=== PATIENT | female | born 1995 | race African-American/Black ===

== ENCOUNTER 2019-06-25 06:40 | Emergency (ER) | payer OTHER ==
[~2019-06-25] VITALS: Ht 154.9 cm; Wt 68.1 kg
--- OUTSIDE RECORDS SUMMARY | 2019-06-25 06:42 | XMS REPORT ---
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 Problem Name Problem Code Onset Date Status Entry Date Provider Comment Standard Description Annotate BMI 27.0-27.9 Active Herbert Stapleton APRN Body Mass Index 27.0-27.9, adult Encounter for immunization V05.9 Active Herbert Stapleton APRN Need for prophylactic vaccination and inoculation against unspecified single disease Iron deficiency anemia 280.9 Active Herbert Stapleton APRN Iron deficiency anemia, unspecified Overweight Active Herbert Stapleton APRN Overweight Preventive health care V70.0 Active Herbert Stapleton APRN Routine general medical examination at a health care facility Screening for anemia V78.1 Active Herbert Stapleton APRN Screening for other and unspecified deficiency anemia Vaccination for HPV V04.89 Active Oscar Serrato DO Need for prophylactic vaccination and inoculation against other viral diseases Urinary tract infection ICD-599.0 Inactive Herbert Stapleton APRN Depo Provera contraceptive, initial prescription ICD-V25.02 Inactive Herbert Stapleton APRN Encounter for general counseling on initiation of other contraceptive measures ICD-V25.02 Inactive Herbert Stapleton APRN Urinary tract infection 599.0 Inactive Kj Ribeiro Urinary tract infection, site not specified Urinary tract infection ICD-599.0 Inactive Herbert Stapleton APRN Urinary tract infection ICD-599.0 Inactive Kj Ribeiro Well woman ICD-V72.31 Inactive Herbert Stapleton APRN NEED PROPH VACCINATION W/UNSPEC COMB VACCINE ICD-V06.9 Inactive Herbert Stapleton APRN Urinary tract infection 599.0 Resolved Herbert Stapleton APRN Urinary tract infection, site not specified Depo Provera contraceptive, initial prescription V25.02 Resolved Herbert Stapleton APRN Encounter for general counseling on initiation of other contraceptive measures Encounter for general counseling on initiation of other contraceptive measures V25.02 Resolved Herbert Stapleton APRN Encounter for general counseling on initiation of other contraceptive measures Urinary tract infection 599.0 Resolved Herbert Stapleton APRN Urinary tract infection, site not specified Well woman V72.31 Resolved Herbert Stapleton APRN Routine gynecological examination NEED PROPH VACCINATION W/UNSPEC COMB VACCINE V06.9 Resolved Herbert Stapleton APRN Need for prophylactic vaccination with unspecified combined vaccine Medication List Medication Instructions Start Date Stop Date Generic Name NDC Status Provider Patient Instruction TANDEM 162-115.2 MG ORAL CAPSULE 1 tablet by mouth daily. Take with Vitamin C to help with absorption. Avoid dairy products 1 hour before or 2 hours after. FERROUS FUM-IRON POLYSACCH [id number] Active Herbert Stapleton APRN Active BACTRIM DS 800-160 MG ORAL TABLET 1 po bid BACTRIM DS 800-160 MG ORAL TABLET 19820928 SULFAMETHOXAZOLE-TRIMETHOPRIM Inactive SULFAMETHOXAZOLE-TRIMETHOPRIM 800-160 MG ORAL TABLET SULFAMETHOXAZOLE-TRIMETHOPRIM 800-160 MG ORAL TABLET 19820928 SULFAMETHOXAZOLE-TRIMETHOPRIM Inactive BACTRIM DS 800-160 MG ORAL TABLET 1 po bid SULFAMETHOXAZOLE-TRIMETHOPRIM [id number] No Longer Active Rodari Stapleton PUMP INSTALLATION AND SERVICER Active SULFAMETHOXAZOLE-TRIMETHOPRIM 800-160 MG ORAL TABLET SULFAMETHOXAZOLE-TRIMETHOPRIM [id number] No Longer Active Kj Ribeiro Active Advance Directives Directive Description Start Date DISCUSSED - NO DECISION MADE Immunizations Vaccine Administration Date Value Standard Description Human Papillomavirus vaccine (Gardasil) #3, (HPV #3) given human papilloma virus vaccine, quadrivalent Human Papillomavirus vaccine (Gardasil) #3, (HPV #3) Drug Name Gardasil 9 human papilloma virus vaccine, quadrivalent Human Papillomavirus vaccine (Gardasil) #2, (HPV #2) given human papilloma virus vaccine, quadrivalent Human Papillomavirus vaccine (Gardasil) #2, (HPV #2) Drug Name Gardasil 9 human papilloma virus vaccine, quadrivalent Human Papilloma Virus Vaccine (Gardasil) (HPV 1) Administration Date given human papilloma virus vaccine, quadrivalent meningococcal polysaccharide conjugate vaccine (MCV4) given meningococcal vaccine, unspecified formulation Vital Signs Date Name Value Unit Range Description blood pressure, diastolic 69 mm[Hg] BP castro blood pressure, systolic 110 mm[Hg] BP sys height E&M 64 [in_us] Bdy height pulse rate E&M 94 /min Heart rate temperature E&M 97.9 [degF] Body temperature weight E&M 158 [lb_av] Weight Measured blood pressure, diastolic 87 mm[Hg] BP castro blood pressure, systolic 129 mm[Hg] BP sys height E&M 64 [in_us] Bdy height pulse rate E&M 79 /min Heart rate temperature E&M 99.1 [degF] Body temperature weight E&M 160.56 [lb_av] Weight Measured Diagnostic Results Date Name Value Unit Range Description Lab Report: CBC With Differential/Platelet, Prolactin, Panel [id number], HCV ... - Serology hepatitis C antibody, serum <0.1 0.0-0.9 Lab Report: UA/M w/rflx Culture, Routine, Microscopic Examination, UA/M ... - Urinalysis epithelial cells, urine 0-10 /[LPF] 0 - 10 Office Visit: Acute Visit Fatigue/ Anemia HPV IN - Urinalysis pH, urine, semiquantitative 5.0 Lab Report: CBC With Differential/Platelet, Comp. Metabolic Panel (14), ... - Hematology lymphocyte count, blood, automated 2.7 X10E3/UL 10*3/mm3 0.7-3.1 Office Visit: Acute Visit Fatigue/ Anemia HPV IN - Urinalysis bilirubin, urine negative Lab Report: CBC With Differential/Platelet, Comp. Metabolic Panel (14), ... - Chemistry urea nitrogen, blood 12 mg/dL 6-20 ferritin, serum 45 ng/mL 15-150 creatinine, serum 0.67 mg/dL 0.57-1.00 chloride, serum 101 mmol/L 96-106 Lab Report: CBC With Differential/Platelet, Comp. Metabolic Panel (14), ... - Hematology mean corpuscular volume, RBC 87 fL 79-97 erythrocyte (RBC) count 4.27 X10E6/UL 10*6/mm3 3.77-5.28 Lab Report: CBC With Differential/Platelet, Comp. Metabolic Panel (14), ... - Chemistry Estimated Glomerular Filtration Rate (calc) 126 mL/min/1.73m2 >59 Lab Report: CBC With Differential/Platelet, Comp. Metabolic Panel (14), ... - Hematology platelet count 426 X10E3/UL 10*3/mm3 150-379 Office Visit: Acute Visit Fatigue/ Anemia HPV IN - Urinalysis appearance, urine clear Lab Report: CBC With Differential/Platelet, Comp. Metabolic Panel (14), ... - Hematology red blood cell distribution width 14.1 % 12.3-15.4 Lab Report: CBC With Differential/Platelet, Comp. Metabolic Panel (14), ... - Chemistry protein, total, serum 7.4 g/dL 6.0-8.5 Lab Report: CBC With Differential/Platelet, Prolactin, Panel [id number], HCV ... - Chemistry prolactin, serum 9.7 ng/mL 4.8-23.3 Lab Report: UA/M w/rflx Culture, Routine, Microscopic Examination, UA/M ... - Urinalysis mucus on urinalysis Present Not Estab. Lab Report: UA/M w/rflx Culture, Routine, Microscopic Examination, UA/M ... - Chemistry specific gravity, body fluid 1.019 1.005-1.030 Office Visit: Acute Visit Fatigue/ Anemia HPV IN - Urinalysis glucose, urine, semiquantitative negative Lab Report: CBC With Differential/Platelet, Comp. Metabolic Panel (14), ... - Chemistry albumin/globulin ratio, serum 1.6 1.2-2.2 Lab Report: CBC With Differential/Platelet, Comp. Metabolic Panel (14), ... - Hematology eosinophils as percent of blood leukocytes 4 % Not Estab. Lab Report: CBC With Differential/Platelet, Comp. Metabolic Panel (14), ... - Chemistry Absolute Neutrophils 2.0 X10E3/UL 10*3/uL 1.4-7.0 Lab Report: CBC With Differential/Platelet, Comp. Metabolic Panel (14), ... - Hematology basophil count, absolute 0.0 x10E3/uL 0.0-0.2 Lab Report: CBC With Differential/Platelet, Prolactin, Panel [id number], HCV ... - Chemistry hepatitis B surface antigen Negative Negative Lab Report: CBC With Differential/Platelet, Comp. Metabolic Panel (14), ... - Chemistry iron saturation percent, serum 20 % 15-55 alanine aminotransferase (SGPT), serum 17 U/L 0-32 Office Visit: Acute Visit Fatigue/ Anemia HPV IN - Urinalysis nitrite, urine, semiquantitative negative Lab Report: CBC With Differential/Platelet, Comp. Metabolic Panel (14), ... - Hematology monocytes as percent of blood leukocytes 10 % Not Estab. Lab Report: Pap IG, rfx HPV ASCU - Lab Human Papillomavirus test result HPVNotTested Lab Report: UA/M w/rflx Culture, Routine, Microscopic Examination, UA/M ... - Basic Occult Blood, urine 1+ Negative Lab Report: CBC With Differential/Platelet, Comp. Metabolic Panel (14), ... - Hematology mean corpuscular hemoglobin concentration, RBC 32.5 G/DL % 31.5-35.7 Office Visit: Acute Visit Fatigue/ Anemia HPV IN - Urinalysis leukocyte esterase, urine, by dipstick negative Lab Report: CBC With Differential/Platelet, Comp. Metabolic Panel (14), ... - Hematology hemoglobin, blood 12.1 g/dL 11.1-15.9 Lab Report: UA/M w/rflx Culture, Routine, Microscopic Examination, UA/M ... - Urinalysis urinalysis, microscopic examination See below: Lab Report: CBC With Differential/Platelet, Comp. Metabolic Panel (14), ... - Hematology leukocyte count, blood 5.5 X10E3/UL 10*3/mm3 3.4-10.8 Lab Report: CBC With Differential/Platelet, Comp. Metabolic Panel (14), ... - Chemistry B-12, serum 435 pg/mL 232-1245 Office Visit: Acute Visit Fatigue/ Anemia HPV IN - Urinalysis protein, urine, semiquantitative (dipstick) negative Lab Report: CBC With Differential/Platelet, Comp. Metabolic Panel (14), ... - Hematology hematocrit, blood 37.2 % 34.0-46.6 Lab Report: CBC With Differential/Platelet, Comp. Metabolic Panel (14), ... - Chemistry globulin, serum 2.9 1.5-4.5 Lab Report: UA/M w/rflx Culture, Routine, Microscopic Examination, UA/M ... - Urinalysis bacteria, urine microscopy None seen None seen/Few Lab Report: CBC With Differential/Platelet, Prolactin, Panel [id number], HCV ... - Chemistry thyroid stimulating hormone, serum 0.845 u[iU]/mL 0.450-4.500 Lab Report: CBC With Differential/Platelet, Comp. Metabolic Panel (14), ... - Chemistry albumin, serum 4.5 g/dL 3.5-5.5 Office Visit: Acute Visit Fatigue/ Anemia HPV IN - Urinalysis urobilinogen, urine, semiquantitative (dipstick) negative Lab Report: CBC With Differential/Platelet, Comp. Metabolic Panel (14), ... - Chemistry calcium, serum 9.6 mg/dL 8.7-10.2 Lab Report: CBC With Differential/Platelet, Comp. Metabolic Panel (14), ... - Hematology basophils as percent of blood leukocytes 0 % Not Estab. monocyte count, blood, automated 0.5 X10E3/UL 10*3/uL 0.1-0.9 Lab Report: CBC With Differential/Platelet, Comp. Metabolic Panel (14), ... - Chemistry immature granulocytes, percentage of total cells, blood 0 % Not Estab. urea nitrogen/creatinine ratio, serum 18 9-23 iron, serum 73 ug/dL 27-159 Lab Report: CBC With Differential/Platelet, Comp. Metabolic Panel (14), ... - Genetics/fertility eGFR if 145 mL/min/1.73m2 >59 Lab Report: UA/M w/rflx Culture, Routine, Microscopic Examination, UA/M ... - Urinalysis WBC urine on microscopy 0-5 /hpf {Cells}/[HPF] 0 - 5 Lab Report: CBC With Differential/Platelet, Comp. Metabolic Panel (14), ... - Chemistry iron binding capacity, total 358 ug/dL 250-450 Lab Report: CBC With Differential/Platelet, Comp. Metabolic Panel (14), ... - Hematology lymphocytes as percent of blood leukocytes 50 % Not Estab. Lab Report: UA/M w/rflx Culture, Routine, Microscopic Examination, UA/M ... - Chemistry RBC, Urine 0-2 /hpf /[HPF] 0 - 2 Lab Report: CBC With Differential/Platelet, Comp. Metabolic Panel (14), ... - Chemistry carbon dioxide, venous blood 22 mmol/L 18-29 Lab Report: CBC With Differential/Platelet, Prolactin, Panel [id number], HCV ... - Serology rapid plasma reagin antibody, serum Non Reactive Non Reactive Lab Report: Chlamydia/GC Amplification - Lab chlamydia DNA probe Negative Negative Lab Report: Chlamydia/GC Amplification - Microbiology Neisseria gonorrhoeae DNA probe Negative Negative Lab Report: CBC With Differential/Platelet, Comp. Metabolic Panel (14), ... - Chemistry sodium, serum 140 mmol/L 134-144 Office Visit: Acute Visit Fatigue/ Anemia HPV IN - Chemistry beta HCG, urine, semiquantitative negative Lab Report: CBC With Differential/Platelet, Comp. Metabolic Panel (14), ... - Chemistry iron binding capacity, unsaturated 285 ug/dL 713-647 7133/02/15 alkaline phosphatase, serum 78 U/L 39-117 Office Visit: Acute Visit Fatigue/ Anemia HPV IN - Urinalysis ketones, urine, by test strip negative Lab Report: CBC With Differential/Platelet, Comp. Metabolic Panel (14), ... - Hematology Eosinophil Absolute Count 0.2 X10E3/UL 10*3/uL 0.0-0.4 Lab Report: CBC With Differential/Platelet, Comp. Metabolic Panel (14), ... - Chemistry folate, serum 8.7 ng/mL >3.0 Office Visit: Acute Visit Fatigue/ Anemia HPV IN - Urinalysis specific gravity, urine 1.025 Lab Report: CBC With Differential/Platelet, Comp. Metabolic Panel (14), ... - Hematology mean corpuscular hemoglobin, RBC 28.3 pg 26.6-33.0 Lab Report: CBC With Differential/Platelet, Comp. Metabolic Panel (14), ... - Chemistry bilirubin, serum, total <0.2 mg/dL mg/dL 0.0-1.2 Lab Report: CBC With Differential/Platelet, Comp. Metabolic Panel (14), ... - Hematology neutrophils as percent of blood leukocytes 36 % Not Estab. Lab Report: UA/M w/rflx Culture, Routine, Microscopic Examination, UA/M ... - Chemistry nitrate, urine Negative Negative Office Visit: Acute Visit Fatigue/ Anemia HPV IN - Urinalysis blood in urine (hemoglobin) by dipstick negative Lab Report: CBC With Differential/Platelet, Comp. Metabolic Panel (14), ... - Chemistry blood glucose, random 80 mg/dL 65-99 potassium, serum 4.7 mmol/L 3.5-5.2 aspartate aminotransferase (SGOT), serum 14 U/L 0-40 Office Visit: Acute Visit Fatigue/ Anemia HPV IN - Urinalysis urine color yellow Encounters Date Encounter Provider Code Facility 13:19:58 [employer] OFFICER New Patient Detailed - [id number] Herbert Stapleton APRN CPT-40214 [facility] 13:36:32 CDT Est Patient Exp Problem - 91327 Erik Ruiz MD CPT-53398 [facility] [employer] 14:34:57 [employer] OFFICER Est Patient Exp Problem - 89858 Oscar Serrato DO CPT-72217 [facility] 06:25:24 [employer] OFFICER Est Patient Exp Problem - 86242 Oscar Serrato DO CPT-29172 [facility] 15:02:03 CDT Est Patient Nurse - Only Visit - 23946 Yane Fernandez CPT-28700 [facility] Procedures Code Procedure Name Date Entry Date Standard Description CPT-33086 Gardasil (HPV) 9 - valent 13:20:13 [employer] OFFICER CPT-51800 Admin of Vaccine - Injection - 1 13:20:12 [employer] OFFICER CPT-14375 Handling of specimen for transfer 13:20:04 [employer]OTE[employer] OFFICER CPT-86925 Venipuncture 13:20:04 [employer]OTECTION OFFICER CPT-13662 Urinalysis - - In House 13:20:03 [employer]OTE[employer] OFFICER CPT-69412 Urinalysis - Dip only - In House 13:20:03 [employer]OTE[employer] OFFICER CPT-81991 Gardasil (HPV) 9 - valent 14:34:58 [employer]OTECTION OFFICER CPT-63956 Admin of Vaccine - Injection - 1 14:34:58 [employer]OTECTION OFFICER CPT-00061 Urinalysis - Dip only - In House 13:36:35 CDT CPT-13370 Urinalysis - - In House 13:36:35 CDT CPT-31380 Est Patient Well Exam (18 - 39 Yrs) - [id number] 15:12:37 [employer]OTECTION OFFICER CPT-29780 Handling of specimen for transfer 14:56:35 [employer] PROTECTION OFFICER CPT-94879 Venipuncture 14:56:31 [employer]OTECTION OFFICER CPT-97365 Gardasil - HPV 15:02:03 CDT CPT-90208 Meningococcal Conj Tetravalent (MCV4) 15:02:03 CDT CPT-51429 Admin of Vaccine - Injection - 1 15:02:03 CDT
--- NOTE | 2019-06-25 09:07 | Diagnostic Imaging Report ---
Transvaginal and transabdominal ultrasound CPT code: 39287, 20127 Indication: Technique: Transabdominal ultrasound performed for global evaluation of the uterus. Transvaginal ultrasound performed for detailed evaluation of the endometrium and ovaries. Selected images provided for review. Comparison: None Findings: LMP: 05/08/2019 Transabdominally the uterus shows 5.6 x 6.2 x 3.7 Bladder is underdistended . Transvaginally, gestational sac and yolk sac are seen. There is no evidence of embryo. No free fluid within endometrial canal. No evidence of subchorionic hemorrhage. The cervix is normal. No free fluid in the cul de sac. Right ovary: Measures 1.9 x 1.5 x 3.4 cm. The echotexture is normal. No mass. Left ovary measures 2.9 x 3.9 x 3.9 cm. It contains a corpus luteum. Blood flow is documented to both ovaries on color Doppler interrogation. IMPRESSION: 1. Single intrauterine with estimated gestational age by ultrasound of 5.5 weeks. Recommend follow-up ultrasound in 5-7 days to confirm developing embryo. 2. Normal ovaries. Signed by: Dr. Rene Landrum MD on 06/25/2019 9:04 AM
[2019-06-25 09:23] VITALS: BP 105/55
== END 2019-06-25 09:35 | disposition home or self-care (01) ==
LOC: FSED 06:40
DX: O20.9 Hemorrhage in early pregnancy, unspecified (principal)
CPT/HCPCS: 36415; 76817; 80048; 81003; 81025; 84702; 85025; 86900; 99284